=== PATIENT | male | born 1965 | race Caucasian/White ===

== ENCOUNTER 2016-11-17 02:06 | Emergency (ER) | payer MEDICAID, OTHER ==
[~2016-11-17] VITALS: Ht 180.3 cm; Wt 72.7 kg
[2016-11-17 02:09] VITALS: BP 144/88; PULSE 120; RESP 16; O2SAT 98
--- NOTE | 2016-11-17 02:43 | ED.REPORT ---
HPI-Abd Pain M 40 and Over Date of Service Nov 17, 2016 ED Provider: Kali Lindo MD Patient is a 51 year old male who presents to the ED complaining of L testicle pain onset 2 days ago. Associated symptoms include L testicular swelling and headache. He denies fever, nausea, vomiting, diarrhea, or any other symptoms. He denies heavy lifting or any injury. Nursing Notes Stated Complaint: L TESTICLE PAIN Chief Complaint: Male Abdominal Pain Nursing Notes Reviewed: Yes Allergies: Coded Allergies: No Known Allergies (Unverified , 11/17/16) Scheduled Doxycycline Monohyd (Doxycycline Monohyd) 100 Mg Capsule 100 MG PO BID Scheduled PRN Naproxen (Naprosyn) 500 Mg Tablet 500 MG PO BID PRN PRN For Pain General Time Seen by MD: 02:42 Chief Complaint Testicular pain L Hx Obtained From: Patient Arrived By: Walk-in Sudden in Onset?: Yes Onset Occurred: 2 days ago Symptom Duration: Since onset Past Medical History Past Medical History Healthy Past Surgical History Denies Ambulatory Status Independent Review of Systems Constitutional: Denies: Fever GI: Denies: Diarrhea, Nausea, Vomiting Male: Reports Testicular pain, Reports Testicular swelling Complete sys rev & neg: except as marked. Neurologic: Reports: Headache Physical Exam Initial Vital Signs Vital Signs (First) Date Time Temp Pulse Resp B/P Pulse Ox O2 Delivery O2 Flow Rate FiO2 11/17/16 02:09 37.2 120 16 144/88 98 Room Air Initial VS: Reviewed Head / Eyes: Atraumatic, Normocephalic Skin: Warm, Dry Neurologic: Alert, Oriented, Nonfocal Psychiatric: Mood/affect normal, Behavior normal, Normal thought content General/Constitutional: Awake, Alert, Well developed Respiratory / Chest: No respiratory distress Cardiovascular: Heart rate NL, Regular rhythm, Heart sounds NL Abdomen: Soft, Non-tender, No hernia Back: Inspection NL Male Genitourinary: No penile discharge, No hernia Testes / Epidid / Scrotum: Positive: No cremasteric reflex L, Scrotum erythema , Testis enlarged L (9 cm in ap dimension) Penis: Negative: Erythema present No hydrocele R testis nL Interpretation & Diagnostics Lab Results Interpretation Result Diagram: 11/17/16 0340 11/17/16 0340 Test 11/17/16 03:40 11/17/16 04:25 White Blood Count 15.5th/mm3 (3.8-10.1) Red Blood Count 4.71mil/mm3 (4.40-5.80) Hemoglobin 13.7g/dL (13.8-17.2) Hematocrit 39.9% (41.0-50.0) Mean Corpuscular Volume 84.7fL (81-100) Mean Corpuscular Hemoglobin 29.1pg (27.0-35.0) Mean Corpuscular Hemoglobin Concent 34.3% (32.0-37.0) Red Cell Distribution Width 12.7% (12.3-15.4) Platelet Count 181bil/L (150-400) Neutrophils (%) (Auto) 81.4% (40-74) Lymphocytes (%) (Auto) 7.2% (14-46) Monocytes (%) (Auto) 10.7% (4-12) Eosinophils (%) (Auto) 0.1% (0-5) Basophils (%) (Auto) 0.1% (0-3) Sodium Level 133mEq/L (134-144) Potassium Level 3.9mEq/L (3.5-5.2) Chloride Level 97mEq/L (97-108) Carbon Dioxide Level 23mmol/L (18-29) Blood Urea Nitrogen 18mg/dL (6-24) Creatinine 0.82mg/dL (0.76-1.27) Estimat Glomerular Filtration Rate 105mL/min (>59) Glucose Level 115mg/dL (60-99) Calcium Level 8.6mg/dL (8.5-10.1) Total Bilirubin 0.6mg/dL (0.0-1.2) Aspartate Amino Transf (AST/SGOT) 24U/L (0-50) Alanine Aminotransferase (ALT/SGPT) 58U/L (0-44) Alkaline Phosphatase 222U/L (25-150) Total Protein 6.7g/dL (6.4-8.4) Albumin 3.7g/dL (3.4-5.0) Hold Warner Top Tube Received (Received) Urine Color Dark yellow (YELLOW) Urine Appearance Cloudy (CLEAR,HAZY) Urine pH 6.0 (5.0-8.0) Urine Specific [place] 1.030 (1.003-1.035) Urine Protein 30mg/dL (NEG,TRACE) Urine Glucose (UA) Negativemg/dL (NEGATIVE) Urine Ketones Negativemg/dL (NEGATIVE) Urine Occult Blood Moderate (NEGATIVE) Urine Nitrite Positive (NEGATIVE) Urine Bilirubin Negative (NEGATIVE) Urine Urobilinogen Normalmg/dL (NORMAL) Urine Leukocyte Esterase Moderate (NEGATIVE) Urine RBC 3-10/hpf (0-2) Urine WBC >50/hpf (0-5) Urine Epithelial Cells Few/hpf (NONE-MOD) Urine Crystals None seen (NONE SEEN) Urine Bacteria Many/hpf (NONE-FEW) Urine Hyaline Casts None/lpf (NONE) Urine Granular Casts None seen (NONE SEEN) Urine Waxy Casts None seen (NONE SEEN) Urine Red Blood Cell Casts None seen (NONE SEEN) Urine White Blood Cell Casts None seen (NONE SEEN) Urine Mucus Present (None Seen) Urine Trichomonas None seen (NONE SEEN) Urine Yeast None (NONE SEEN) Urine Culture Reflexed Indicated Lab Results Interpretation: US Scrotum Left epididymoorchitis, and loculated/septated left hydrocele. No torsion or intratesticular mass. Elif Joshi M.D. Re-Eval/Medical Decision Med Decision/Clinical Course 51-year-old with progressive swelling of his left testicle with erythema and pain. He has underlying a large septated hydrocele. However he has evidence of epididymitis which is consistent with his clinical exam. GC and chlamydia DNA probes are pending. Begun with doxycycline twice a day, hot soaks, supportive underclothing, and follow-up with urology. Time of Eval: 04:23 )( Re-Eval Abdomen: Soft Re-Evaluation/Progress Note: Discussed US results and plan for discharge with follow up with urology. Patient understands and agrees with plan. All questions addressed at this time. Counseled Regarding: Diagnosis, Lab results, Need for follow-up, When/why to return to ED Discharge & Departure Shift Change Sign-Out Response to Therapy: Unchanged Primary Impression: Epididymitis Additional Impression: Hydrocele in adult Disposition: Home Vital Signs - All Vital Signs Date Time Temp Pulse Resp B/P Pulse Ox O2 Delivery O2 Flow Rate FiO2 11/17/16 04:42 107 16 126/81 99 Room Air 11/17/16 02:09 37.2 120 16 144/88 98 Room Air )( All Prior VS Reviewed: Yes Condition: Improved Patient Instructions: Epididymitis (ED), Hydrocele (ED) Additional Instructions: Warm sit down bath/soak four times daily. Wear supportive underwear or jock strap to keep your testicle supported and close to your body. Naprosyn twice daily for pain. Vicodin if additional liter for pain. Doxycycline twice daily. Follow-up with your doctor in the office. You may follow up with residency clinic if needed. Also follow-up in the urology office. Return if any immediate issues. Referrals: Amandeep Orr MD (Family) Cinthya Ramsay MD Scribe Attestation Portions of this note were transcribed by Kane Hall. I, Dr. Lindo personally performed the history, physical exam and medical decision-making; I reviewed and confirmed the accuracy of the information in the transcribed note. Signed by: Kane Hall 11/17/16, 1327 copies to: Amandeep Orr MD; Cinthya Ramsay MD, Christopher W MD Nov 17, 2016 02:43 KANE HALL Nov 17, 2016 02:59
[2016-11-17] MEDS ORDERED: 0.9% Sodium Chloride 1,000 ML IV ONE (02:55)
[2016-11-17 03:55] LABS: BASOPHILS % (AUTO) 0.1 % (0-3); EOSINOPHILS % (AUTO) 0.1 % (0-5); MONOCYTES % (AUTO) 10.7 % (4-12); Mean Corpuscular Hemoglobin 29.1 pg (27.0-35.0); Mean Corpuscular Volume 84.7 fL (81-100); NEUTROPHILS % (AUTO) 81.4 % (40-74); Platelet Count 181 bil/L (150-400)
[2016-11-17] MEDS ORDERED: _HYDROcodone/APAP 5-325 mg Tablet PO PRN (04:20)
[2016-11-17] MEDS ORDERED: DOXY100C43 PO (04:21)
[2016-11-17] MEDS ORDERED: NAPR500T PO (04:21)
[2016-11-17 04:42] VITALS: BP 126/81; PULSE 107; RESP 16; O2SAT 99
[2016-11-17 04:42] LABS: APPEARANCE,URINE CLOUDY (CLEAR,HAZY); COLOR,URINE DARK YELLOW (YELLOW); OCCULT BLOOD,URINE MODERATE (NEGATIVE); UROBILINOGEN,URINE NORMAL (NORMAL)
--- NOTE | 2016-11-17 08:19 | DRSVH ---
PROCEDURE: US TESTICULAR SONOGRAM WITH DOPPLER INDICATIONS: swollen x 3 days TECHNIQUE: Real-time scanning was performed of the scrotum and testicles, with image documentation. Color and p ulse Doppler interrogation was performed of both testicles. COMPARISON: None. FINDINGS: Right: Testicle is normal in size at 4.2 0.1 x 3.1 cm, and homogenous in echotexture. Epididymis is normal in overall size and morphology. No hydrocele or varicoceles. Overlying scrotal skin is norm al in thickness. Left: Testicle is normal in size at 5.0 x 3.1 x 3.6 cm, and minimally heterogeneous in echotexture. Epididymis is enlarged, hyperemic and heterogeneous . Loculated hydrocele present. Overlying scro [place] skin is normal in thickness. Doppler: Color and pulse Doppler demonstrate normal and symmetric arterial flow in both testicles. IMPRESSION: 1. Abnormal appearance of the left epididymis which is enlarged, hyperemic and heterogeneous suggesti ng epididymitis. Of note, there is mild heterogeneity of the left testicle which could be associated with developing associated orchitis. 2. Loculated left hydrocele and developing pyocele cannot be excluded. Note: These findings are concordant with the preliminary interpretation. Dictated by: Hermelindo RENAE Interpreted: Pricilla Boudreaux MD on 11/17/2016 at 8:15 Transcribed by: RAFAEL on 11/17/2016 at 8:19 Approved by: Pricilla Boudreaux M.D. on 11/17/2016 at 15:16
[2016-11-17] MEDS ORDERED: Sodium Chloride LOK Flush 10 mL Syringe IVFLUSH SCH (08:30)
== END 2016-11-17 04:44 | disposition home or self-care (01) ==
LOC: SED 02:06
DX: N45.1 Epididymitis (principal); B96.20 Unspecified Escherichia coli [E. coli] as the cause of diseases classified elsewhere; N43.3 Hydrocele, unspecified; R51 Headache
CPT/HCPCS: 36415; 76870; 80053; 81000; 85025; 87077; 87086; 87088; 87186; 87491; 87591; 93975; 96361; 96374; 99285; J7030